=== PATIENT | female | born 1975 | race Caucasian/White ===

== ENCOUNTER 2020-03-06 15:43 | Emergency (ER) | payer SELFPAY ==
[~2020-03-06] VITALS: Ht 170.2 cm; Wt 117.0 kg
[2020-03-06 15:45] VITALS: BP 128/81
--- NOTE | 2020-03-06 15:53 | NUR ---
44 Y/O F C/C FEVER/MYALGIA X 3 DAYS. PER PT FEVER/MYALGIA INTERMITTENT, TAKEN OTC RX TYLENOL/IBUPROFEN WITH NO RELIEF. PT DENIES CHEST PAIN/DYSPNEA/COVID EXPOSURE/FLU SHOT TAKEN. PT PRESENTS A/OX4,EUPNIC,VSS,AMBULATORY. ALLERGIES PNC. HX ASTHMA. RX ALBUTEROL. NO NVD. SIDE RAIL X1.
[2020-03-06] MEDS ORDERED: KETOROLAC 30 MG/ML VIAL IVP ONE (16:30)
--- NOTE | 2020-03-06 16:59 | NUR ---
RAD AT BEDSIDE
[2020-03-06 17:08] LABS: BASOPHILS % (AUTO) 0.6 % (0.0-2.0); EOSINOPHILS % (AUTO) 0.2 % (0.0-4.0); HEMATOCRIT 40.9 % (36-48); HEMOGLOBIN 13.7 g/dL (12.0-16.0); LYMPHOCYTES # (AUTO) 0.9 K/uL (2.5-16.5); LYMPHOCYTES % (AUTO) 28.9 % (20.5-51.1); MEAN CORPUSCULAR HEMOGLOBIN 30 pg (27-31); MEAN CORPUSCULAR HGB CONC 34 g/dL (33-37); MEAN CORPUSCULAR VOLUME 88.1 fL (80-94); MONOCYTES # (AUTO) 0.3 K/uL (0.8-1.0); MONOCYTES % (AUTO) 9.3 % (1.7-9.3); PLATELET COUNT (AUTO) 172 K/uL (140-450); RED BLOOD CELL COUNT(AUTO) 4.64 MIL/uL (4.20-5.40); RED CELL DISTRIBUTION WIDTH 13.5 % (11.6-13.7); WHITE BLOOD COUNT (AUTO) 3.2 K/uL (4.8-10.8)
--- NOTE | 2020-03-06 17:09 | NUR ---
COVID SWAB DONE, TAKEN TO LAB
[2020-03-06 17:14] LABS: ANION GAP 14.4 (8-16); CARBON DIOXIDE 24.9 mmol/L (21-32); CREATININE 0.8 mg/dL (0.6-1.3); POTASSIUM 3.3 mmol/L (3.5-5.1)
[2020-03-06 17:18] LABS: PROTHROMBIN TIME 10.4 secs (10.8-13.4)
[2020-03-06 17:20] LABS: ALBUMIN 3.6 g/dL (3.4-5.0); TOTAL BILIRUBIN 0.3 mg/dL (0.0-1.0)
[2020-03-06 17:33] LABS: APPEARANCE,URINE HAZY (CLEAR); BILIRUBIN,URINE NEGATIVE (NEGATIVE); BLOOD, URINE NEGATIVE (NEGATIVE); COLOR,URINE YELLOW (YELLOW); LEUKOCYTE ESTERASE ,URINE NEGATIVE (NEGATIVE); NITRITE, URINE NEGATIVE (NEGATIVE); UGLUCOSE NEGATIVE (NEGATIVE)
[2020-03-06 18:12] VITALS: BP 126/78
--- NOTE | 2020-03-06 18:12 | NUR ---
Patient discharged with v/s stable. Written and verbal after care instructions given and explained. Patient alert, oriented and verbalized understanding of instructions. Ambulatory with steady gait. All questions addressed prior to discharge. ID band removed. Patient advised to follow up with PMD. Rx of AZITHROMYCIN,PROMETHAZINE,ZINC GLUCONATE,MOTRIN given. Patient educated on indication of medication including possible reaction and side effects. Opportunity to ask questions provided and answered.
--- NOTE | 2020-03-07 15:30 | NUR ---
Covid results received from lab. Results are POSITIVE. Hard copy requested from lab and placed in infection controls mailbox.
== END 2020-03-06 18:12 | disposition home or self-care (01) ==
LOC: MED 15:43
DX: U07.1 COVID-19 (principal); J45.909 Unspecified asthma, uncomplicated; Z88.0 Allergy status to penicillin
CPT/HCPCS: 36415; 36600; 71045; 80053; 81003; 82803; 83605; 85025; 85610; 85730; 87040; 93005; 96374; 99285; J1885; Q0092; U0003

== ENCOUNTER 2021-08-03 11:07 | Emergency (ER) | payer BC, OTHER ==
[~2021-08-03] VITALS: Ht 170.2 cm; Wt 112.0 kg
[2021-08-03 11:08] VITALS: BP 136/94
--- NOTE | 2021-08-03 11:15 | NUR ---
C/O GENERALIZED ABD PAIN RADIATING TO MID BACK PAIN X 1 WEEK. PMH: APPPENDECTOMY, HYSTERECTOMY, ASTHMA
[2021-08-03] MEDS ORDERED: ALUMINUM HYD/MAG/SIMETHICONE 30 ML, DICYCLOMINE HCL LIQUID 20 MG, LIDOCAINE VISCOUS 2% ... PO ONE ×3 (11:30)
[2021-08-03] MEDS ORDERED: KETOROLAC 30 MG/ML VIAL IVP ONE (11:30)
--- NOTE | 2021-08-03 12:55 | NUR ---
MARIA E SENT TO LAB
[2021-08-03] MEDS ORDERED: KETOROLAC 30 MG/ML VIAL ONE (12:59)
[2021-08-03] MEDS ORDERED: ALUMINUM HYD/MAG/SIMETHICONE 30 ML UDC ONE (13:05)
[2021-08-03] MEDS ORDERED: diphenhydrAMINE 12.5 MG/5 ML UDC ONE (13:06)
[2021-08-03 13:46] LABS: ALBUMIN 3.3 g/dL (3.4-5.0); ANION GAP 11.4 (8-16); CARBON DIOXIDE 27.7 mmol/L (21-32); CREATININE 0.4 mg/dL (0.6-1.3); POTASSIUM 4.1 mmol/L (3.5-5.1); TOTAL BILIRUBIN 0.6 mg/dL (0.0-1.0)
[2021-08-03 14:02] LABS: BASOPHILS % (AUTO) 0.5 % (0.0-2.0); EOSINOPHILS # (AUTO) 0.1 K/uL (0-0.4); EOSINOPHILS % (AUTO) 1.4 % (0.0-4.0); HEMATOCRIT 38.4 % (36-48); HEMOGLOBIN 13.1 g/dL (12.0-16.0); LYMPHOCYTES # (AUTO) 2.7 K/uL (2.5-16.5); LYMPHOCYTES % (AUTO) 30.6 % (20.5-51.1); MEAN CORPUSCULAR HEMOGLOBIN 29 pg (27-31); MEAN CORPUSCULAR HGB CONC 34 g/dL (33-37); MEAN CORPUSCULAR VOLUME 85.6 fL (80-94); MONOCYTES # (AUTO) 0.5 K/uL (0.8-1.0); MONOCYTES % (AUTO) 5.7 % (1.7-9.3); NEUTROPHILS # (AUTO) 5.5 K/uL (1.8-7.7); NEUTROPHILS % (AUTO) 61.8 % (42.2-75.2); PLATELET COUNT (AUTO) 248 K/uL (140-450); RED BLOOD CELL COUNT(AUTO) 4.48 MIL/uL (4.20-5.40); RED CELL DISTRIBUTION WIDTH 13.6 % (11.6-13.7); WHITE BLOOD COUNT (AUTO) 8.9 K/uL (4.8-10.8)
[2021-08-03] MEDS ORDERED: FAMO-90 PO (15:35)
[2021-08-03 15:57] VITALS: BP 141/91
--- NOTE | 2021-08-03 16:01 | NUR ---
Patient discharged with v/s stable. Written and verbal after care instructions given on gastritis and explained. Patient verbalized understanding. Ambulatory with steady gait. All questions addressed prior to discharge. Advised to follow up with PMD.
--- NOTE | 2021-08-03 17:04 | NUR ---
Chart checked and completed. The patient's care was reviewed and supervised by Valeri Danielle, RN, RN.
== END 2021-08-03 15:57 | disposition home or self-care (01) ==
LOC: MED 11:07
DX: R10.13 Epigastric pain (principal); J45.909 Unspecified asthma, uncomplicated; Z90.49 Acquired absence of other specified parts of digestive tract; Z79.899 Other long term (current) drug therapy; Z88.0 Allergy status to penicillin
CPT/HCPCS: 36415; 76705; 80053; 81002; 82150; 83690; 85025; 96372; 99284; J1885; Q0092; Q0163